=== PATIENT | female | born 1960 | race Caucasian/White ===

== ENCOUNTER 2016-08-11 11:42 | Emergency (ER) | payer BC ==
--- NOTE | 2016-08-11 12:45 | UC ---
Skin Complaint HPI - HPI Summary HPI Summary: itchy, red, hot, burning rash on forearms. She thinks a spider or some other insect bit her at night, as she awoke with the symptoms. No known skin exposures. No rash elsewhere. No long gloves, no other contacts she can think of. No fever or vomiting - History of Current Complaint Time Seen by Provider: 08/11/16 12:27 Stated Complaint: SKIN COMPLAINT Hx Obtained From: Patient Onset/Duration: Gradual Onset Timing: Constant Onset Severity: Mild Current Severity: Moderate Location: Other - both dorsal forearms Character: Swelling, Pruritus, Redness, Raised Aggravating: Nothing, Touch Alleviating: Nothing, Cold Compresses Associated Signs & Symptoms: Positive: Tenderness. Negative: Nausea, Vomiting, Numbness, Difficulty Breathing, Fever, Abdominal Pain, Lightheadedness, Syncope - Allergy/Home Medications Allergies/Adverse Reactions: Allergies Allergy/AdvReac Type Severity Reaction Status Date / Time No Known Allergies Allergy Verified 01/16/16 18:08 Review of Systems Constitutional: Negative Skin: Rash Eyes: Negative ENT: Negative Respiratory: Negative Cardiovascular: Negative Gastrointestinal: Negative Genitourinary: Negative Motor: Negative Neurovascular: Negative Musculoskeletal: Negative Neurological: Negative Psychological: Negative All Other Systems Reviewed And Are Negative: Yes PMH/Surg Hx/FS Hx/Imm Hx Endocrine History Of: Reports: Thyroid Disease - Surgical History Surgical History: Yes Surgery Procedure, Year, and Place: Gall bladder. Gastric bypass. Hysterectomy - Family History Known Family History: Positive: Hypertension - Social History Occupation: Employed Full-time Lives: With Family Alcohol Use: Occasionally Substance Use Type: None Smoking Status (MU): Never Smoked Tobacco Physical Exam Triage Information Reviewed: Yes Appearance: Well-Appearing, No Pain Distress, Well-Nourished Vital Signs Reviewed: Yes Eye Exam: Normal Neck exam: Normal Neck: Positive: Supple Respiratory Exam: Normal Respiratory: Positive: Lungs clear Cardiovascular Exam: Normal Musculoskeletal Exam: Normal Neurological Exam: Normal Psychological Exam: Normal Skin Exam: Other - both forearms with ulcerated sores about 1cm diam, two or three on each side. Surrounding erythema, mild tenderness extending over dorsum of both forearms. Full ROM at wrist and elbow Course/Dx - Differential Diagnoses - Skin Complaint Differential Diagnoses: Cellulitis, Contact Dermatitis, Local Allergic Reaction , Urticaria - Diagnoses Provider Diagnoses: cellulitis Discharge - Discharge Plan Condition: Stable Disposition: HOME Prescriptions: Hydrocortisone 2.5% CREAM(NF) 1 applic TOPICAL BID #1 tube Sulfamethox/Trimethoprim DS* [Bactrim DS 800/160 TAB*] 1 tab PO BID #20 tab Patient Education Materials: Cellulitis (ED) Referrals: Tayler Crystal MD [Primary Care Provider] - Additional Instructions: Your rash appears to be most consistent with an allergic-type reaction to something that bit you or came into contact with your skin. The antibiotic will treat or prevent any bacterial cellulitis from starting. Use the hydrocortisone cream and ice the area down twice a day. Benadryl at night to help with itching
[2016-08-11 12:54] VITALS: BP 158/81
== END 2016-08-11 12:55 | disposition home or self-care (01) ==
LOC: UCCORT 11:42
DX: L03.114 Cellulitis of left upper limb (principal); L03.113 Cellulitis of right upper limb; Z98.84 Bariatric surgery status; Z90.49 Acquired absence of other specified parts of digestive tract; Z90.710 Acquired absence of both cervix and uterus
CPT/HCPCS: 99212; G0463